=== PATIENT | male | born 1955 | race Caucasian/White ===

== ENCOUNTER 2016-09-19 13:35 | Emergency (ER) | payer MEDICAID ==
[2016-09-19] MEDS ORDERED: Oxymetazoline 0.05% Nasal Spray 15 ML Bottle NAS ONE (14:04)
[2016-09-19] MEDS ORDERED: Sodium Chloride 0.9% 10 ML Syringe FLUSH PRN (14:04)
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
[2016-09-19 16:29] VITALS: BP 152/85
--- NOTE | 2016-09-20 07:08 | CR ---
Chest: Frontal view of the chest was obtained. Comparison: No previous study. Heart size at the upper limits of normal. Tortuous thoracic aorta is seen. Nodule noted within the right lung base most likely representing granuloma. Lungs otherwise are clear. Impression: 1. Probable right basilar granuloma. 2. Nothing acute is appreciated on portable chest x-ray. Diagnostic code #2
== END 2016-09-19 16:35 | disposition home or self-care (01) ==
LOC: JD.ED 13:35
DX: R04.0 Epistaxis (principal); R07.9 Chest pain, unspecified; I10 Essential (primary) hypertension; Z79.899 Other long term (current) drug therapy
CPT/HCPCS: 30901; 36415; 71010; 80053; 84484; 85025; 93005; 99284; A9270; J7050; 99285-25

== ENCOUNTER 2016-09-21 10:44 | Emergency (ER) | payer MEDICAID ==
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
--- NOTE | 2016-09-21 13:05 | US ---
Left lower extremity deep venous ultrasound: Duplex and color flow imaging was obtained of the left common femoral, proximal greater saphenous, superficial femoral, popliteal, posterior tibial and peroneal veins. Normal phasic flow and augmentation seen within the veins. Normal compression and augmentation is seen within the veins. Phasic flow is not seen within the peroneal vein. Phasic flow otherwise seen throughout the veins. This finding is felt to be incidental. Right common femoral vein is patent. Impression: 1. No evidence of deep venous thrombosis seen within the left lower extremity or within the right common femoral vein. Diagnostic code #1
[2016-09-21] MEDS ORDERED: Naproxen 500 MG Tab PO ONE (13:54)
[2016-09-21 14:26] VITALS: BP 138/96
--- NOTE | 2016-09-21 14:28 | CR ---
Pelvis and left hip: AP view of the pelvis was obtained as well as AP and frog-leg lateral views of the left hip. Comparison: No previous study. Medial joint space narrowing noted within the left hip. Osteophytes noted off the inferior hip on the left side. Mild superior joint space narrowing noted within the right hip. Sacroiliac joints are within normal limits. Bony structures are osteopenic. Calcification seen within the pelvis compatible with phleboliths. Impression: 1. Degenerative change within both hips, worse on the left side. 2. Other incidental findings. Diagnostic code #2
== END 2016-09-21 14:20 | disposition home or self-care (01) ==
LOC: JD.ED 10:44
DX: M16.12 Unilateral primary osteoarthritis, left hip (principal); I10 Essential (primary) hypertension
CPT/HCPCS: 73502; 93971; 99284; A9270; 99283